=== PATIENT | male | born 2000 | race African-American/Black ===

== ENCOUNTER 2022-02-16 22:13 | Emergency (ER) | payer OTHER | END 2022-02-17 00:42 | disposition left against medical advice (07) | LOC: CSHERS 22:13 | DX: Z53.21 Procedure and treatment not carried out due to patient leaving prior to being seen by health care provider (principal) ==

== ENCOUNTER 2022-06-14 23:34 | Emergency (ER) | payer OTHER ==
[2022-06-15 01:22] LABS: Bilirubin Neg (Negative); Blood, Urine 25 (Negative); Clarity Slightly Cloudy (Clear); Glucose, Urine (Dipstick) Normal (Negative); Ketone, Urine 15 mg/dL (Negative); Leukocyte 25 (Negative); Nitrite Negative (Negative); Protein, Urine (Dipstick) 30 mg/dl (Neg-Trace); Specific Gravity, Urine 1.025 (1.005-1.030)
[2022-06-15 01:29] LABS: PTT 25.1 sec (22.0-33.0); Prothrombin Time 10.8 sec (9.5-12.1)
[2022-06-15 01:30] LABS: RBC/HPF 0-3 HPF (0-3); Squamous Epithelial 0-3 HPF (0-3); WBC/HPF 0-3 HPF (0-3)
[2022-06-15 01:31] LABS: Bacteria/HPF Rare-Few HPF (None Seen)
[2022-06-15 01:33] LABS: Amphetamine Not Detected (NotDetected); Barbiturates Screen Not Detected (NotDetected); Benzodiazepine Screen Not Detected (NotDetected); Cocaine Metabolite Screen Not Detected (NotDetected); Methadone Not Detected (NotDetected); Methamphetamine Not Detected (NotDetected); Opiate Screen Not Detected (NotDetected); Oxycodone Screen Not Detected (NotDetected); Phencyclidine (PCP) Not Detected (NotDetected); THC/Cannabinoid Screen Detected (NotDetected); Tricyclic Screen Not Detected (NotDetected)
[2022-06-15 01:38] LABS: Calcium Oxalate Crystals 3+ HPF (None Seen)
[2022-06-15 01:41] LABS: ALT (SGPT) 54 U/L (8-55); AST (SGOT) 107 U/L (5-34); Acetaminophen Less than 10.0 mcg/mL (10.0-30.0); Albumin 5.5 g/dL (3.5-5.0); Alcohol 63 mg/dL (Less than 10); Alkaline Phosphatase 71 U/L (40-110); Anion Gap 23 mmol/L (10-20); BUN (Urea Nitrogen) 23 mg/dL (8.9-20.6); Bilirubin, Total 0.8 mg/dL (0.2-1.2); Calc. Creatinine Clearance 0 mL/min (70-130); Calcium 10.5 mg/dL (7.8-10.44); Carbon Dioxide 21 mmol/L (22-29); Chloride 103 mmol/L (98-107); Estimated GFR 70; Globulin 3.4 g/dL (2.4-3.5); Glucose 55 mg/dL (70-105); Hemoglobin 16.3 g/dL (13.5-17.5); Lipase 19 U/L (8-78); Mean Corpuscular HGB CONC 34.5 g/dL (32.0-36.0); Mean Corpuscular Hemoglobin 30.5 pg (27.0-33.0); Mean Corpuscular Volume 88.2 fl (81.2-95.1); Mean Platelet Volume 9.6 fl (7.4-10.4); Platelet Count 309 10x3/uL (150-450); Potassium 3.6 mmol/L (3.5-5.1); Protein, Total 8.9 g/dL (6.0-8.3); RBC Distribution Width 13.3 % (11.5-14.5); Red Blood Cell (RBC) Count 5.35 10x6/uL (4.32-5.72); Salicylate Less than 8.0 mg/dL (15.0-30.0); Sodium 143 mmol/L (136-145); White Blood Cell (WBC) Count 24.5 10x3/uL (3.5-10.5)
[2022-06-15 01:43] LABS: MDiff Complete? YES
[2022-06-15 01:45] LABS: Band 15 % (5-11); Lymphocytes 7 % (21-51); Metamyelocyte 1 % (0-0); Monocytes 2 % (0-10); Neutrophil 75 % (42-75)
[2022-06-15 01:46] LABS: CK (CPK) 4504 U/L (30-200); Platelet Morphology Comment Appears Adequate; Vacuoles SLIGHT
[2022-06-15] MEDS ORDERED: Vancomycin 1 GM VIAL ONE (02:27)
[2022-06-15] MEDS ORDERED: Vancomycin HCl 500 MG VIAL ONE (02:28)
[2022-06-15] MEDS ORDERED: Cefepime 2 GM VIAL ONE (02:28)
[2022-06-15] MEDS ORDERED: Ondansetron PF 4 MG/2 ML Vial ONE ×2 (03:26→03:28)
== END 2022-06-15 03:58 | disposition left against medical advice (07) ==
LOC: CSHERS 23:34
DX: A41.9 Sepsis, unspecified organism (principal); M62.82 Rhabdomyolysis; F17.290 Nicotine dependence, other tobacco product, uncomplicated
CPT/HCPCS: 36415; 36416; 70450; 71045; 72125; 72170; 80053; 80306; 80307; 81003; 81015; 82550; 83605; 83690; 84443; 84484; 85025; 85610; 85730; 87040; 93005; 96361; 96365; 96375; J0692; J2405; J3370

== ENCOUNTER 2023-04-09 21:52 | Emergency (ER) | payer SELFPAY | END 2023-04-09 23:15 | disposition home or self-care (01) | LOC: CSHERS 21:52 | DX: R55 Syncope and collapse (principal); F17.290 Nicotine dependence, other tobacco product, uncomplicated | CPT/HCPCS: 36416; 99283 ==

== ENCOUNTER 2024-04-28 02:27 | Emergency (ER) | payer SELFPAY ==
[2024-04-28] MEDS ORDERED: cefTRIAXone (ROCEPHIN) 500 MG VIAL ONE (02:49)
[2024-04-28] MEDS ORDERED: Sterile Water 10 ML ONE (02:50)
[2024-04-28] MEDS ORDERED: metroNIDAZOLE 500 MG TAB ONE (02:57)
[2024-04-29 11:36] LABS: Chlam.trachomatis by PCR,Urine Not Detected (NotDetected); GC N.gonorrhoeae PCR,UrineVOID DETECTED (NotDetected)
== END 2024-04-28 03:28 | disposition home or self-care (01) ==
LOC: CSHERS 02:27
DX: Z20.2 Contact with and (suspected) exposure to infections with a predominantly sexual mode of transmission (principal); F17.290 Nicotine dependence, other tobacco product, uncomplicated
CPT/HCPCS: 87491; 87591; 96372; 99283; J0696